=== PATIENT | female | born 1975 | race Caucasian/White ===

== ENCOUNTER 2025-07-15 15:13 | Emergency (ER) | payer BC ==
[2025-07-15 15:59] VITALS: RESP 18; TEMP 98.8; O2SAT 99
--- NOTE | 2025-07-15 17:04 | ERPHSYRPT ---
- History of Present Illness Patient Subjective Stated Complaint: Pt. states, "I was walking down the road and stepped in a hole and rolled my ankle. Now it hurts to walk on it and its starting to swell." Triage Nursing Assessment: Pt. ambulates to room without diff., A&Ox4, Skin P/W/D, Resp. even and unlabored, left ankle swollen with possibe deformity. Physician History: This a 49-year-old white female presents to emergency room with pain in her right ankle after she was walking and stepped in a hole and twisted her ankle. Patient says she heard a pop. Patient is able to weight-bear the right ankle and foot. No other trauma noted Allergies/Adverse Reactions: acetaminophen [From Tylenol] Allergy (Verified 06/16/25 20:42) Cephalosporins Allergy (Verified 06/16/25 20:42) codeine Allergy (Verified 06/16/25 20:42) diphenhydramine HCl [From Benadryl] Allergy (Verified 06/16/25 20:42) Penicillins Allergy (Verified 06/16/25 20:42) Hx Tetanus, Diphtheria Vaccination/Date Given: Yes Hx Influenza Vaccination/Date Given: No Hx Pneumococcal Vaccination/Date Given: No Immunizations Up to Date: No Travel Risk - International Travel Have you traveled outside of the country in past 3 weeks: No - Emerging Infectious Disease Are you exhibiting symptoms associated with any current EIDs: No - Review of Systems Constitutional: No Fever, No Chills Eyes: No Symptoms Ears, Nose, & Throat: No Symptoms Respiratory: No Cough, No Dyspnea Cardiac: No Chest Pain, No Edema, No Syncope Abdominal/Gastrointestinal: No Abdominal Pain, No Nausea, No Vomiting, No Diarrhea Genitourinary Symptoms: No Dysuria Musculoskeletal: Injury, Joint Pain, No Back Pain, No Neck Pain Skin: No Rash Neurological: No Dizziness, No Focal Weakness, No Sensory Changes Psychological: No Symptoms Endocrine: No Symptoms All Other Systems: Reviewed and Negative - Past Medical History Pertinent Past Medical History: Yes Cardiac History: Hypertension, Other Other Medical History: POTS - Past Surgical History Past Surgical History: Yes Other Surgical History: ABLASION. TUBAL LIGATION. BREAST REDUCTION. breast biopsy - Female History Hx Now: No - Social History Smoking Status: Never smoker Exposure to second hand smoke: No Drug Use: none - Social Determinants of Health Will the patient participate in the screening: Declined to provide - Nursing Vital Signs Nursing Vital Signs: Initial Vital Signs Temperature 98.8 F 07/15/25 15:13 Pulse Rate 110 H 07/15/25 15:13 Respiratory Rate 18 07/15/25 15:13 Blood Pressure 225/120 07/15/25 15:13 O2 Sat by Pulse Oximetry 99 07/15/25 15:13 Pain Scale Pain Intensity 2 - Physical Exam General Appearance: alert Eyes, Ears, Nose, Throat Exam: moist mucous membranes Neck Exam: non-tender, supple Cardiovascular/Respiratory Exam: chest non-tender, normal breath sounds, regular rate/rhythm, no respiratory distress Gastrointestinal/Abdominal Exam: non-tender, guarding Back Exam: normal inspection, No vertebral tenderness Ankle Exam: right ankle: non-tender, other (There is edema and tenderness over the lateral malleolus) Neuro/Tendon Exam: normal sensation, normal motor functions Mental Status Exam: alert, oriented x 3, cooperative Skin Exam: normal color, warm, dry SpO2: 99 Procedures - Splinting Location of Splint: Right, Ankle Type of Splint: Air Cast Splint Applied By: ED Nurse Pre-Proc Neuro Vasc Exam: normal Post-Proc Neuro Vasc Exam: neurovascular intact, unchanged from pre-exam Ordered Tests: Active Orders 24 hr Category Date Time Status ANKLE (3 VIEWS) Stat Exams 07/15/25 15:59 Taken - Progress Progress Note: The patient presented with right ankle pain x-ray was read by me as negative. Aircast splint was applied I examined the affected extremity after application of the splint and found to be neurovascularly intact patient was then given crutches. Patient will be discharged home on Naprosyn and RICE instructions. Differential diagnosis sprain strain fracture 07/15/25 17:01 - Departure Clinical Impression: Sprain of right ankle Condition: Stable Critical Care Time: No Referrals: JOANA HENDERSON [Primary Care Provider, PULMONARY MEDICINE] - Follow up/PCP as directed Additional Instructions: Keep your ankle elevated apply ice take medication for pain and follow-up with your doctor in 2 to 3 days return to ER if worse Prescriptions: Naproxen 500 mg [Naprosyn 500 MG] 500 mg PO BID #10 tablet
[2025-07-15 17:16] VITALS: BP 185/94; PULSE 98
--- NOTE | 2025-07-15 20:29 | XRAY ---
Indication: Pain and swelling. Comparison: None 3 view right ankle demonstrates anterolateral soft tissue swelling and tiny posterior/plantar heel spurs. No other bony, articular, or soft tissue abnormalities.
== END 2025-07-15 17:20 | disposition home or self-care (01) ==
LOC: ED 15:13
DX: S93.401A Sprain of unspecified ligament of right ankle, initial encounter (principal); W18.42XA Slipping, tripping and stumbling without falling due to stepping into hole or opening, initial encounter; Y93.01 Activity, walking, marching and hiking; Y92.410 Unspecified street and highway as the place of occurrence of the external cause; I10 Essential (primary) hypertension